=== PATIENT | male | born 1945 | race Caucasian/White ===

== ENCOUNTER 2017-04-06 06:34 | Day surgery (SDC) | payer MEDICARE, OTHER ==
[~2017-04-06 06:34] MED LIST: Buffered Lidocaine 0.9% SYRIN* 5 ML/SYR SYRINGE INTRADERM ONE
[2017-04-06] MEDS ORDERED: ceFAZolin 2 GM PREMIX (*) 50 ML IVPB ONE (06:54)
[2017-04-06] MEDS ORDERED: Propofol* 10 MG/ML 20 ML BTL IV PUSH ONE (07:28)
[2017-04-06] MEDS ORDERED: Lidocaine 2% PF * 5 ML VIAL ONE (07:28)
[2017-04-06] MEDS ORDERED: fentaNYL* 50 MCG/ML 2 ML VIAL (100 MCG VIAL) ONE (07:28)
[2017-04-06] MEDS ORDERED: Bupivacaine 0.25% SDV* 30 ML ONE (07:39)
[2017-04-06 08:26] VITALS: BP 154/86
== END 2017-04-06 08:52 | disposition home or self-care (01) ==
LOC: OREAST 06:34
PROVIDERS: ATTEND Plastic Surgery
DX: M65.351 Trigger finger, right little finger (principal); M65.341 Trigger finger, right ring finger
CPT/HCPCS: J0690; J2704; J3010

== ENCOUNTER 2017-04-20 06:31 | Day surgery (SDC) | payer MEDICARE, OTHER ==
[~2017-04-20 06:31] MED LIST changes: +Buffered Lidocaine 0.9% SYRIN* 5 ML/SYR SYRINGE ONE; +Famotidine IV* 10 MG/ML 2 ML (20 mg) IV ONE; +Famotidine IV* 10 MG/ML 2 ML (20 mg) ONE; +Metoclopramide TAB* 10 MG ONE; +Metoclopramide TAB* 10 MG PO ONE
[2017-04-20] MEDS ORDERED: ceFAZolin 2 GM PREMIX (*) 50 ML IVPB ONE (06:41)
[2017-04-20] MEDS ORDERED: Dexamethasone IV* 4 MG/ML 1 ML (4 MG) ONE (07:11)
[2017-04-20] MEDS ORDERED: Propofol* 10 MG/ML 20 ML BTL IV PUSH ONE (07:11)
[2017-04-20] MEDS ORDERED: Ondansetron INJ* 2 MG/ML VIAL ONE (07:11)
[2017-04-20] MEDS ORDERED: Lidocaine 2% PF * 5 ML VIAL ONE (07:11)
[2017-04-20] MEDS ORDERED: fentaNYL* 50 MCG/ML 2 ML VIAL (100 MCG VIAL) ONE (07:12)
[2017-04-20] MEDS ORDERED: Midazolam* 1 MG/ML 5 ML VIAL (5 MG) ONE (07:12)
[2017-04-20] MEDS ORDERED: Bupivacaine 0.25% SDV* 30 ML ONE (07:23)
[2017-04-20] MEDS ORDERED: Ondansetron INJ* 2 MG/ML VIAL IV PRN (08:21)
[2017-04-20] MEDS ORDERED: oxyCODONE/Acetamin 5/325 MG* TAB PO PRN (08:21)
[2017-04-20 08:26] VITALS: BP 133/81
== END 2017-04-20 08:45 | disposition home or self-care (01) ==
LOC: OREAST 06:31
PROVIDERS: ATTEND Plastic Surgery
DX: M65.322 Trigger finger, left index finger (principal); M65.352 Trigger finger, left little finger
CPT/HCPCS: A9270-GY; J0690; J1100; J2250; J2405; J2704; J3010

== ENCOUNTER → 2017-07-01 19:37 | Emergency (ER) | payer MEDICARE, OTHER ==
[2017-07-01 20:07] VITALS: BP 141/84
--- NOTE | 2017-07-01 20:10 | UC ---
Hand/Wrist HPI - HPI Summary HPI Summary: Pt presents with left wrist pain. He tells me that around 1845 today he slipped going down snowy stairs and landed on his left arm/wrist. Did not hit his head or have LOC. Had immediate pain, but subsided within minutes. Went home and iced his wrist, then decided to come to . He did have surgery on this hand for two trigger fingers in April - he has healed well from those, but still has some residual swelling...is being followed by Orthopedics for this. - History Of Current Complaint Chief Complaint: UCUpperExtremity Stated Complaint: SORE WRIST Time Seen by Provider: 07/01/17 20:10 Hx Obtained From: Patient Onset/Duration: Sudden Onset Severity Initially: Moderate Severity Currently: Mild Pain Intensity: 2 Pain Scale Used: 0-10 Numeric Character Of Pain: Dull, Aching, Stiffness Aggravating Factor(s): Movement Alleviating Factor(s): Rest, Ice - Allergies/Home Medications Allergies/Adverse Reactions: Allergies Allergy/AdvReac Type Severity Reaction Status Date / Time No Known Allergies Allergy Verified 07/01/17 20:07 Home Medications: Home Medications Ibuprofen [Ibuprofen 200 MG] 2 cap PO Q6H PRN 07/01/17 [History Confirmed ] PMH/Surg Hx/FS Hx/Imm Hx Previously Healthy: Yes - Surgical History Surgical History: Yes Surgery Procedure, Year, and Place: 1996 SCOPE LEFT KNEE [facility]. 2006 TRIGGER FINGER 2 FINGERS RELEASED [facility] - Family History Known Family History: Positive: Unknown - Social History Occupation: Retired Lives: With Family Alcohol Use: Daily Alcohol Amount: 1-2/day Substance Use Type: None Smoking Status (MU): Never Smoked Tobacco Have You Smoked in the Last Year: No - Immunization History Most Recent Influenza Vaccination: n/a Most Recent Pneumonia Vaccination: n/a Review of Systems Constitutional: Negative Skin: Negative Respiratory: Negative Cardiovascular: Negative Gastrointestinal: Negative Musculoskeletal: Decreased ROM - Left wrist, Edema - Left wrist, Other: - Pain left wrist Neurological: Negative Psychological: Negative All Other Systems Reviewed And Are Negative: Yes Physical Exam Triage Information Reviewed: Yes Appearance: Well-Appearing, Well-Nourished Vital Signs: Initial Vital Signs Temp 98.6 F 07/01/17 20:02 Pulse 82 07/01/17 20:02 Resp 16 07/01/17 20:02 BP 141/84 07/01/17 20:02 Pulse Ox 97 07/01/17 20:02 Vital Signs Reviewed: Yes Neck: Positive: Supple, No Lymphadenopathy, Other: - FROM. NTTP Respiratory: Positive: Chest non-tender, Lungs clear, Normal breath sounds Cardiovascular: Positive: RRR, No Murmur, Pulses Normal - Left radial, Brisk Capillary Refill - Left hand all fingers. Aric test negative. Musculoskeletal: Positive: Strength Intact, ROM Intact, Edema @ - Left wrist radial side, left index and pinky finger., Other: - TTP over distal 1/3 of radius. Able to supinate and pronate without pain or difficulties. NTTP anatomical snuffbox or fingers. No obvious bony deformities or ecchymosis. 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 Neurological: Positive: Alert, Other: - Sensations intact left hand and all fingers. Psychological: Positive: Age Appropriate Behavior Hand/Wrist Course/Dx - Course Course Of Treatment: Wrist/Forearm XR:FINDINGS: There is a nondisplaced intra- articular fracture of the distal radius. No other fractures are evident. The carpals articulate normally. There is mild diffuse soft tissue swelling. Patient was placed in a sugar tong splint with the elbow at 90deg and the wrist and forearm in neutral rotation/flexion/extension. Follow up with ortho [facility]. He declined anything for pain as he is in very little discomfort. - Differential Dx/Diagnosis Differential Diagnosis/HQI/PQRI: Contusion, Dislocation, Fracture, Sprain, Strain Provider Diagnoses: Left distal radius intra-articular fracture - nondisplaced Discharge - Discharge Plan Condition: Stable Disposition: HOME Patient Education Materials: Wrist Fracture in Adults (ED) Referrals: John Briggs NP [Primary Care Provider] - Isabel Bell MD [Medical Doctor] - As Soon As Possible Additional Instructions: If you develop a fever, SOB, chest pain, new or worsening symptoms - please call your PCP or go to the ED. Your blood pressure was slightly elevated at todays visit. Please see your primary provider within 4 weeks for recheck and re-evaluation. 1) Please keep your splint clean, dry, and intact until you see Orthopedics. 2) Please call the number below early monday morning to schedule a follow up appointment [facility] with Orthopedics. 3) May take tylenol OTC for pain
--- NOTE | 2017-07-01 20:44 | RAD ---
INDICATION: Left forearm injury COMPARISON: None TECHNIQUE: AP and lateral views were obtained. FINDINGS: There is a distal forearm fracture described in the wrist report. The bony structures, joint spaces, and soft tissues otherwise normal. IMPRESSION: DISTAL RADIAL FRACTURE. SEE SEPARATE REPORT.
--- NOTE | 2017-07-01 20:44 | RAD ---
INDICATION: Left wrist injury COMPARISON: None TECHNIQUE: AP, lateral, and oblique views were obtained. FINDINGS: There is a nondisplaced intra-articular fracture of the distal radius. No other fractures are evident. The carpals articulate normally. There is mild diffuse soft tissue swelling. IMPRESSION: DISTAL RADIAL FRACTURE.
== END | disposition home or self-care (01) ==
LOC: UCEAST 19:37
DX: S52.572A Other intraarticular fracture of lower end of left radius, initial encounter for closed fracture (principal); W10.9XXA Fall (on) (from) unspecified stairs and steps, initial encounter; Y93.01 Activity, walking, marching and hiking; Y92.9 Unspecified place or not applicable; Y99.9 Unspecified external cause status
CPT/HCPCS: 99211; G0463